=== PATIENT | female | born 1965 | race Caucasian/White ===

== ENCOUNTER 2017-06-22 14:42 | Emergency (ER) | payer OTHER ==
[~2017-06-22] VITALS: Ht 162.6 cm; Wt 57.2 kg
[2017-06-22] MEDS ORDERED: AVAPRO150 MG (14:57)
== END 2017-06-22 19:34 | disposition home or self-care (01) ==
LOC: ER 14:42
DX: J06.9 Acute upper respiratory infection, unspecified (principal)

== ENCOUNTER 2017-08-15 23:46 | Emergency (ER) | payer OTHER ==
[~2017-08-15] VITALS: Ht 162.6 cm; Wt 56.7 kg
[~2017-08-15 23:46] MED LIST: AVAPRO150 MG
[2017-08-16] MEDS ORDERED: VISTARIL50 MG PO (05:12)
== END 2017-08-16 | disposition home or self-care (01) ==
LOC: ER 23:46
DX: R42 Dizziness and giddiness (principal)